=== PATIENT | female | born 1995 | race Caucasian/White ===

== ENCOUNTER 2019-07-17 10:32 | Emergency (ER) | payer BC ==
[~2019-07-17] VITALS: Ht 160 cm; Wt 49.9 kg
[2019-07-17 10:39] VITALS: BP 112/70; Ht 160 cm; Wt 49.9 kg
== END 2019-07-17 11:46 | disposition home or self-care (01) ==
LOC: ED 10:32
DX: S90.31XA Contusion of right foot, initial encounter (principal); X58.XXXA Exposure to other specified factors, initial encounter; Y93.89 Activity, other specified; Y92.89 Other specified places as the place of occurrence of the external cause; Y99.8 Other external cause status
CPT/HCPCS: 90715